=== PATIENT | female | born 1975 | race Caucasian/White ===

== ENCOUNTER 2022-10-20 16:57 | Emergency (ER) | payer BC, SELFPAY ==
--- NOTE | ~2022-10-20 | CT_ITS ---
EXAMINATION: CT abdomen pelvis w con DATE: 10/21/2022 00:27 INDICATION: Abdominal pain, cramps, nausea and diarrhea TECHNIQUE: Computed tomography (CT) of the abdomen and pelvis was performed with 100 CC Omnipaque 350 intravenous contrast. Automated exposure control and iterative reconstruction technique were employe d. Exam dose: 231.02 mGy-cm total exam DLP. COMPARISON: 01/23/2012 CT abdomen pelvis FINDINGS: The lung bases are clear. Normal heart size. No pericardial or pleural effusion. The liver, gallbladder, bile ducts, pancreas, pancreatic duct, spleen and kidneys appear normal. No u rinary tract calculus or hydroureteronephrosis is evident. Normal caliber of the abdominal aorta. No intraperitoneal or retroperitoneal or pelvic mass lesion or adenopathy or ascites is noted. Occasional small bowel air-fluid levels but no small or large bowel dilatation, bowel obstruction, aditi wel wall thickening, pneumatosis or intraperitoneal free air is detected. Small fat-containing umbilical hernia. Multilevel moderate to moderately severe degenerative disc disease of the lumbar spine. No suspicious osteolytic or osteoblastic lesions are noted. IMPRESSION: Occasional small bowel air-fluid levels, possibly due to enteritis; no bowel obstruction or free air Reviewed, dictated and finalized at [facility]. Reviewed, dictated and finalized at [facility]. IMPRESSION: Occasional small bowel air-fluid levels, possibly due to enteritis ; no bowel obstruction or free air
[2022-10-20 18:00] VITALS: BP 114/74; PULSE 79; RESP 16; TEMP 36.8; O2SAT 100
[2022-10-20 23:14] VITALS: BP 114/75; PULSE 69; RESP 16; O2SAT 100
[2022-10-20] MEDS: SODIUM CHLORIDE 0.9% IV 1,000 ML 999 ML IV CONT (23:38)
[2022-10-20] MEDS: ONDANSETRON INJ 4 MG/2 ML VIAL IV PUSH (23:39)
[2022-10-20] MEDS: DICYCLOMINE HCL INJ 20 MG/2 ML VIAL IM (23:39)
[2022-10-20 23:48] LABS: Basophils Absolute Auto 0.1 K/mm3 (0.0-0.1); Basophils Percent Auto 0.9 % (0.2-1.2); Eosinophils Absolute Auto 0.3 K/mm3 (0-0.3); Eosinophils Percent Auto 4.5 % (0-4.4); Hematocrit 39.2 % (37.0-47.0); Hemoglobin 12.5 g/dL (12.0-15.0); Immature Granulocyte Absolute 0.01 K/mm3 (0.00-0.031); Immature Granulocyte Percent A 0.2 % (0-0.5); Lymphocytes Absolute Auto 2.32 K/mm3 (0.9-3.2); Lymphocytes Percent Auto 41.4 % (18.3-44.2); Mean Corpuscular HGB Conc 31.9 g/dl (32-36); Mean Corpuscular Hemoglobin 29.9 pg (26-34); Mean Corpuscular Volume 93.8 fl (80-100); Mean Platelet Volume 10.9 fl (7.4-10.4); Monocytes Absolute Auto 0.4 K/mm3 (0.1-0.6); Monocytes Percent Auto 6.6 % (2.6-8.5); Neutrophils Absolute Auto 2.6 K/mm3 (1.3-6.7); Neutrophils Percent Auto 46.4 % (45.5-73.1); Platelet Count Result 188 k/mm3 (150-375); Red Blood Count 4.18 M/mm3 (4.2-5.4); Red Cell Distribution Width 12.6 % (11.5-14.5); White Blood Count 5.6 K/mm3 (4.5-10.0)
[2022-10-20 23:53] LABS: Appearance Urine Cloudy (Clear); Bacteria Urine 1+ /hpf; Bilirubin Urine Negative (Negative); Blood Urine Negative (Negative); Color Urine Yellow (Yellow); Glucose Urine UA Negative (Negative); Ketones Urine Negative (Negative); Leukocyte Esterase Ur Trace LEU/UL (Negative); Nitrate Urine Negative (Negative); Non Pathogenic Casts 0-2; Protein Urine Negative (Negative); Specific Grav Ur 1.015 (1.001-1.035); Squamous Epithelial Cell Urine Many /hpf (Few); Urobilinogen Urine 0.2 mg/dL (<2.0); pH Urine 5.5 (5.0-9.0)
[2022-10-20 23:59] LABS: Add Urine Microscopic? YES
[2022-10-21 00:01] LABS: Alanine Aminotransferase 18 U/L (6-35); Albumin Level 4.2 g/dL (3.5-5.1); Alkaline Phosphatase 51 U/L (38-126); Anion Gap 6 mmol/L (8-16); Aspartate Amino Transferase 28 U/L (14-36); Bilirubin,Total 0.3 mg/dL (0.2-1.3); Blood Urea Nitrogen 11 mg/dL (7-17); Calcium 9.2 mg/dL (8.4-10.2); Carbon Dioxide 29 mmol/L (22-30); Chloride 103 mmol/L (98-107); Estimated CRCL calculation 63 ml/min; Estimated Glomerular Filt Rate > 60; Glucose 69 mg/dL (65-110); Lactic Acid Reflex 0.5 mmol/L (0.7-2.0); Lipase 37 U/L (23-300); Magnesium 1.8 mg/dL (1.6-2.3); Potassium 3.8 mmol/L (3.4-5.0); Sodium 138 mmol/L (137-145)
--- NOTE | 2022-10-21 02:37 | ED.GENADULT ---
HPI - General Adult General Chief complaint: Abdominal Pain Stated complaint: abdominal cramps, diarrhea since may Time Seen by Provider: 10/20/22 23:09 History of Present Illness HPI narrative: Patient 47-year-old female who presents to the emergency department with chief complaint of abdominal pain diarrhea and nausea. The patient reports this has been ongoing for some time reports that she had no travel reports that she has been taking Imodium without success and reports that she had nausea without vomiting. Patient reports she has not seen her primary care provider reports that she has had multiple watery stools. The patient reports no recent antibiotics no recent travel. Related Data Allergies Allergy/AdvReac Type Severity Reaction Status Date / Time Penicillins Allergy Unknown Unknown Verified 10/20/22 23:21 povidone Allergy Unknown Unknown Verified 10/20/22 23:21 soap Allergy Unknown Unknown Verified 10/20/22 23:21 Review of Systems Review of Systems: A 10 system review of systems was completed on the patient and is negative except for what is stated in the HPI. Nursing and ancillary documentation was reviewed. [facility] Past Medical History Medical History History of depression Surgical History Surgical History History of hysterectomy Family History Family History Father Family history of arthritis Family history of chronic obstructive pulmonary disease Mother Family history of arthritis Other Cerebrovascular accident Diabetes mellitus Family history of allergic disorder Hypertension Social History Social History Smoking status: Never smoker Alcohol intake: current Exam Narrative: GENERAL: Well-appearing, well-nourished, and in no acute distress. HEAD: Normocephalic, atraumatic. EYES: PERRLA and EOMI. ENT: Nares clear, no rhinorrhea or epistaxis. Mucous membranes moist. NECK: Supple. CHEST: Clear to auscultation. No respiratory distress. HEART: Regular rate and rhythm. No murmur heard. Normal peripheral pulses. ABDOMEN: Soft, diffuse mild tenderness, nondistended, normal active bowel sounds. EXTREMITIES: Normal range of motion. No edema. SKIN: Warm, dry, no rash. NEURO: No focal deficits. Alert and oriented x3. PSYCH: Normal mood and affect. Course Vital Signs Vital signs: Vital Signs Temperature 36.8 C 10/20/22 18:00 Pulse Rate 79 10/20/22 18:00 Respiratory Rate 16 10/20/22 18:00 Blood Pressure 114/74 10/20/22 18:00 Pulse Oximetry 100 10/20/22 18:00 Oxygen Delivery Room Air 10/20/22 18:00 Temperature 36.8 C 10/20/22 18:00 Pulse Rate 69 10/20/22 23:14 Respiratory Rate 16 10/20/22 23:14 Blood Pressure 114/75 10/20/22 23:14 Pulse Oximetry 100 10/20/22 23:14 Oxygen Delivery Room Air 10/20/22 23:14 Medical Decision Making [facility] Narrative Medical decision making narrative: Differential diagnosis includes gastroenteritis, diverticulitis, colitis, appendicitis, Studies were obtained on the patient which showed a white blood cell count of 5.6 electrolytes were within normal limits lactic acid is 0.5 urinalysis showed evidence of 6-10 white blood cells in the urine 1+ bacteria and trace leukocyte esterase CT scan showed evidence of enteritis Plan will be to treat the patient with ciprofloxacin that will cover both UTI and also enteritis Vital Signs Vital Signs: Vital Signs Temperature 36.8 C 10/20/22 18:00 Pulse Rate 79 10/20/22 18:00 Respiratory Rate 16 10/20/22 18:00 Blood Pressure 114/74 10/20/22 18:00 Pulse Oximetry 100 10/20/22 18:00 Oxygen Delivery Room Air 10/20/22 18:00 Temperature 36.8 C 10/20/22 18:00 Pulse Rate 69 10/20/22 23:14 R
[2022-10-21 02:59] VITALS: BP 104/76; PULSE 63; RESP 15; TEMP 36.4; O2SAT 98
== END 2022-10-21 03:00 | disposition home or self-care (01) ==
PROVIDERS: Emergency Provider Emergency Medicine; PCP Internal Medicine
DX: K52.9 Noninfective gastroenteritis and colitis, unspecified (principal); N39.0 Urinary tract infection, site not specified; Z90.710 Acquired absence of both cervix and uterus
CPT/HCPCS: 36415; 74177; 80053; 81001; 81025; 83605; 83690; 83735; 85025; 87086; 87088; 96361; 96372; 96374; 99284; J0500; J2405; J7030; Q9967

== ENCOUNTER 2024-02-18 06:23 | Emergency (ER) | payer BC, SELFPAY ==
--- NOTE | ~2024-02-18 | CT_ITS ---
EXAMINATION: CT lumbar spine wo con DATE: 02/18/2024 08:23 INDICATION: Low back pain. Lumbar radiculopathy. TECHNIQUE: Computed tomography (CT) of the lumbar spine was performed without intravenous contrast. A utomated exposure control and iterative reconstruction technique were employed. The dose-length produ ct was 411.05 mGy-cm. COMPARISON: CT abdomen and pelvis 10/21/2022 FINDINGS: There is 7 degrees levocurvature of lumbar spine. Vertebral body heights are normal. There are sclerotic lesions in L3 vertebral body, stable from 10/21/2022, likely benign. There is moderately decreased disc height at L2-L3 and severely decreased disc height from L3-L4 through L5-S1. The foll owing disc levels are specifically discussed: L1-L2: The disc does not extend beyond the endplate margin. There is mild bilateral facet joint osteo arthritis. There is no neural foraminal stenosis. There is no central canal stenosis. L2-L3: The disc is bulging. There is mild bilateral facet joint osteoarthritis. There is mild bilater al neural foraminal stenosis. There is mild central canal stenosis. L3-L4: The disc is bulging. There is moderate right and mild left facet joint osteoarthritis. There i s mild bilateral neural foraminal stenosis. There is mild central canal stenosis. L4-L5: The disc is bulging. There is moderate bilateral facet joint osteoarthritis. There is mild cecil ateral neural foraminal stenosis. There is mild central canal stenosis. L5-S1: The disc is bulging. There is mild bilateral facet joint osteoarthritis. There is mild bilater al neural foraminal stenosis. There is mild central canal stenosis. IMPRESSION: 1. Severe lumbar spondylosis. Reviewed, dictated and finalized at [facility]. [employer]GER
[2024-02-18 06:46] VITALS: BP 93/67; PULSE 72; RESP 18; TEMP 37; O2SAT 98
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
[2024-02-18] MEDS: HYDROmorphone HCL INJ (*CRX) 1 MG/ML SYR IM (08:12)
[2024-02-18 08:15] VITALS: BP 123/92; PULSE 84; RESP 18; O2SAT 99
[2024-02-18 09:41] VITALS: BP 115/79; PULSE 62; RESP 19; O2SAT 100
== END 2024-02-18 09:42 | disposition home or self-care (01) ==
PROVIDERS: Emergency Provider Emergency Medicine; PCP Internal Medicine
DX: M54.16 Radiculopathy, lumbar region (principal); F32.A Depression, unspecified
CPT/HCPCS: 72131; 96372; 99284; J1171

== ENCOUNTER 2024-09-13 14:43 | Emergency (ER) | payer BC, SELFPAY ==
[2024-09-13 14:52] VITALS: BP 126/68; PULSE 77; RESP 16; TEMP 36.7; O2SAT 95
--- NOTE | 2024-09-13 15:26 | ED.EAR ---
HPI - Ear Problem General Chief complaint: Ear Stated complaint: Ear Irritation, Hand Pain Time Seen by Provider: 09/13/24 14:45 Source: patient Mode of arrival: ambulatory Limitations: no limitations History of Present Illness HPI Narrative: Lexus is a 49-year-old female patient presenting to the clinic today with complaints of bilateral hand pain x2 months and bilateral ear discomfort/decreased hearing. She reports the bilateral ear discomfort has been over the past few days however the bilateral hand pain is been going on for 2 months. States the pain is over her bilateral 1st metacarpals. No known injury. Works at the local [employer]. States when she wears her compression wrap and applies Biofreeze the pain improves. Related Data Home Medications ?Medication ?Instructions ?Recorded ?Confirmed ?Last Taken ?Type alprazolam 1 mg tablet mg 09/13/24 Unknown History bupropion HCl 150 mg tablet,12 hr mg PO 09/13/24 Unknown History sustained-release buspirone 10 mg tablet mg 09/13/24 Unknown History estradiol 2 mg tablet mg 09/13/24 Unknown History Allergies Allergy/AdvReac Type Severity Reaction Status Date / Time Penicillins Allergy Unknown Unknown Verified 09/13/24 14:51 povidone Allergy Unknown Unknown Verified 09/13/24 14:51 soap Allergy Unknown Unknown Verified 09/13/24 14:51 iodine Allergy Unknown Verified 09/13/24 14:51 povidone-iodine (From Allergy Blister Verified 09/13/24 14:51 Betadine) Review of Systems Review of Systems: Pertinent positives per HPI. Patient denies any fever, chills, rash, headache, visual changes, dizziness, cough, shortness of breath, chest pain, palpitations, nausea, vomiting, diarrhea, constipation, abdominal pain, or any urinary issues. [facility] Past Medical History Medical History History of depression Surgical History Surgical History History of hysterectomy Family History Family History Father Family history of arthritis Family history of chronic obstructive pulmonary disease Mother Family history of arthritis Other Cerebrovascular accident Diabetes mellitus Family history of allergic disorder Hypertension Social History Social History Smoking status: Never smoker Alcohol intake: current Comments At the time of my signature, I reviewed and agree with the nursing past medical, surgical, social, and family history. There is no relevant family history pertinent to the patient complaint. Exam Narrative: General: Well-developed, well nourished, in no apparent distress Head: Normocephalic, atraumatic Eyes: Pupils equally round and reactive to light bilaterally, EOM intact, sclera and conjunctive clear, no discharge, lids normal Ears: Cerumen impaction bilaterally, ear irrigation was performed successfully, TMs intact and clear, ear canals excoriated, no drainage, grossly hearing normal. Nose: Nares patent, no discharge, no inflammation, no sinus tenderness. Mouth: Oral pharynx without lesions or masses, good dentition, MMM. Neck: Supple, trachea midline, no enlargement of anterior or posterior cervical nodes, no thyroid masses or goiter palpable. Cardio: Regular rate and rhythm, s1 and s2 normal, no murmur appreciated. Resp: Clear to auscultation bilaterally, no rhonchi, rales, wheezing or rubs Musculoskeletal: No deformity, tender to palpation over the bilateral 1st metacarpal, negative Tinel's, negative Phalen's, negative Matthew, grossly normal range of motion, muscle strength strong and equal, peripheral pulse strong, no edema, no cyanosis, normal gait and station Course Course Emergency Course: Portions of this record may have been created with voice recognition software. Level of Care: Express Care Visit Vital Signs Vital signs: Vital Signs Temperature 36.7 C 09/13/24 14:52 Pulse Rate 77 09/13/24 14:52 Respiratory Rate 16 09/13/24 14:52 Blood Pressure 126/68 09/13/24 14:52 Pulse Oximetry 95 09/13/24 14:52 Oxygen Delivery Room Air 09/13/24 14:52 Temperature 36.7 C 09/13/24 14:52 Pulse Rate 77 09/13/24 14:52 Respiratory Rate 16 09/13/24 14:52 Blood Pressure 126/68 09/13/24 14:52 Pulse Oximetry 95 09/13/24 14:52 Oxygen Delivery Room Air 09/13/24 14:52 Vital signs reviewed Medical Decision Making MDM Narrative Medical decision making narrative: At the time of visit patient is resting comfortably on the exam table. Patient appears to be nontoxic. Procedures: Ear lavage procedure was performed to bilateral ears successfully. Patient tolerated well Plan: I suspect patient has arthralgia of bilateral hands. Patient has excoriation to bilateral ear canals likely due to impacted wax/ear irrigation. We will place on a 5 day course of Cortisporin. Supportive measures were discussed with the patient and they voiced understanding discharge instructions and agrees to treatment plan. Return precautions reviewed Differential Diagnosis Differential Diagnosis: Otitis media, otitis externa, eustachian tube dysfunction, cerumen impaction, upper respiratory infection, serous otitis, Meniere's disease, conductive hearing loss, sensorineural hearing loss, carpal tunnel syndrome, arthritis, tendinitis, de Quervain syndrome Vital Signs Vital Signs: Vital Signs Temperature 36.7 C 09/13/24 14:52 Pulse Rate 77 09/13/24 14:52 Respiratory Rate 16 09/13/24 14:52 Blood Pressure 126/68 09/13/24 14:52 Pulse Oximetry 95 09/13/24 14:52 Oxygen Delivery Room Air 09/13/24 14:52 Temperature 36.7 C 09/13/24 14:52 Pulse Rate 77 09/13/24 14:52 Respiratory Rate 16 09/13/24 14:52 Blood Pressure 126/68 09/13/24 14:52 Pulse Oximetry 95 09/13/24 14:52 Oxygen Delivery Room Air 09/13/24 14:52 Discharge Plan Discharge Clinical Impression: Arthralgia of both hands, Bilateral impacted cerumen Otitis externa Qualifiers: Otitis externa type: diffuse Chronicity: acute Laterality: bilateral Qualified Code(s): H60.313 - Diffuse otitis externa, bilateral Patient Disposition: Home Condition: Stable Instructions: Antibiotic Form, Earache (ED), Arthralgia (ED) Additional Instructions: Ear irrigation was performed successfully in the clinic today. May still Cortisporin ear drops in each ear 3 times daily x5 days I suspect patient likely has hand arthralgia. Rest, ice, elevate, and compression sleeves as directed Tylenol/motrin for pain as discussed. May apply Aspercreme, blue emu, or Biofreeze to the affected area to help alleviate pain Follow up with your PCP if symptoms persist more than 1 week. Patient Language: Kiswahili Prescriptions: New [id number] 3.5-10,000-1 mg/mL-unit/mL-% drops,suspension 4 drp EACH EAR Q8H 5 Days Qty: 10 0RF No Action bupropion HCl 150 mg tablet sustained-release 12 hr PO alprazolam 1 mg tablet buspirone 10 mg tablet estradiol 2 mg tablet Follow-up/Referrals: Danny,Brian Forrester MD [Primary Care Provider] - Time of Disposition: 16:04 Quality NIHSS Nursing Documentation ED NIHSS nursing documentation: reviewed/agree
[2024-09-13] MEDS: CARBAMIDE PEROXIDE 6.5% OT SOLN 15 ML BTL 5 DROP EACH EAR (15:32)
== END 2024-09-13 16:12 | disposition home or self-care (01) ==
PROVIDERS: Emergency Provider Nurse Practitioner Family; PCP Internal Medicine
DX: H61.23 Impacted cerumen, bilateral (principal); M25.542 Pain in joints of left hand; M25.541 Pain in joints of right hand; H60.313 Diffuse otitis externa, bilateral; Z79.899 Other long term (current) drug therapy
CPT/HCPCS: 69210; 99213; A9270; G0463

== ENCOUNTER 2024-12-05 16:56 | Emergency (ER) | payer BC, SELFPAY ==
--- OUTSIDE RECORDS SUMMARY | 2024-12-04 09:30 | XMS_ITS ---
Author Organization [facility] Address [address] [place] [address] [place] [address] Care Team Providers Care Industrial Arts Teacher Name Role Phone HECTOR XIAO MD Primary Care Provider Tl Zarate Unavailable [phone] VIVIANE MEADE CHARLES Unavailable Unavailable ALLERGIES Allergen (clinical drug ingredient) Drug/Non Drug Allergy documented on EMR Reaction Allergy Type Onset Date Status povidone-iodine Betadine rash Drug Allergy A ctive amoxicillin Amoxicillin anaphylaxis Drug Allergy A ctive Iodinated contrast media (substance) Iodinated Contrast Media rash Drug Allergy Active Penicillin hives Drug Allergy Active REASON FOR VISIT New Patient Visit, Left > Right Neck Pain, Left = Right Upper Extremity Pain, Right = Left Low Back Pain, Right = Left Lower Extremity Pain MEDICATIONS Medication SIG (Take, Route, Frequency, Duration) Notes Start Date End Date Status Vitamin C 1000 MG 1 tablet Orally Once a day for 30 day(s) Active Calcium 1200 3306-8201 MG-UNIT 1 tablet Orally Once a day for 30 day(s) Active busPIRone HCl 10 MG TAKE 1 TABLET BY RODNEY TH TWICE A DAY FOR 30 DAYS Oral for 30 Active Tylenol 325 MG 1 tablet as needed O rally every 6 hrs Active ZyrTEC Allergy 10 MG 1 tablet Orally Onc e a day for 30 day(s) Active Estradiol 2 MG TAKE 1 TABLET BY RODNEY TH DAILY Oral for 30 Active buPROPion HCl ER (SR) 150 MG TAKE 1 TABLET BY MOUTH TWICE A DAY Oral for 30 Active ALPRAZolam 1 MG TAKE 1 TABLET BY RODNEY TH TWICE A DAY NEEDED Oral for 30 Active Aleve 220 MG 1 tablet with food o r milk as needed Orally every 12 hrs Active Ibuprofen 200 MG 1 tablet with food o r milk as needed Orally Three times a day Active SOCIAL HISTORY Tobacco Use: Social History Observation Description Date Details (start date - stop date) Current Smoker NA - NA Sex Assigned At : Social History Observation Description Sex Assigned At Unknown Tobacco Use/Smoking Question Answer Notes Are you a current smoker How often do you smoke cigarettes? some days, bu t not every day Are you interested in quitting? Not ready to lily t Tobacco use other than smoking: Question Answer Notes Are you an other tobacco user? 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 The patient is single with two children. The patient vapes. She has a history of alcohol abuse. She has been sober for 9 years. She denies llicit drug abuse. PROBLEMS Problem Type ICD Code Onset Dates Problem Status W/U Status Risk SNOMED Code Notes Problem Radiculopathy, cervical region (M54.12) Active confirmed Cervical radiculopathy (91414255) Problem Lumbar radiculopathy (M54.16) Active confirmed Lumbar radiculopathy (174449712) VITAL SIGNS Blood pressure systolic 128 mm Hg 12/05/19 25 Blood pressure diastolic 85 mm Hg 025 Heart Rate 74 /min 12/04/2024 Respiratory Rate 16 /min 12/04/2024 Height 5 ft 5 in in 12/04/2024 Weight 146 lbs 12/04/2024 BMI 24.29 kg/m2 12/04/2024 Encounters Encounter Location Date Provider Diagnosis [facility] [address] [place] [id number] 12/04/2024 Tl Wooten Radiculopathy, cervical region M54.12 and Lumbar radiculopathy M54.16 ASSESSMENTS Encounter Date Diagnosis Assessment Notes Treatment Notes Treatment Clinical Notes Section Notes 12/04/2024 Radiculopathy, cervical region (ICD-10 - M54.12) 12/04/2024 Lumbar radiculopathy (ICD-10 - M54.16) 12/04/2024 Other The above note was dictated by Dr. Wooten using voice recognition software and therefore inadvertent errors may have occurred. As a result, this note may not represent a completely accurate interpretation of the intended dictation provided. Thank you for your kind referral and for involving me in the care of this patient. PLAN OF TREATMENT Treatment Notes Assessment Notes Other The above note was dictated by Dr. Wooten using voice recognition software and therefore inadvertent errors may have occurred. As a result, this note may not represent a completely accurate interpretation of the intended dictation provided. Thank you for your kind referral and for involving me in the care of this patient. Pending Test Test Name Order Date MRI : Cervical Spine without Contrast ([id number]) 12/04/2024 MRI : Lumbar Spine without contrast ([id number]) 12/04/2024 Next Appt Details Provider Name:Tl Cody June hebert, 12/19/2024 09:30:00 AM, [address] [place], [address], Progress Notes * Examination Category Sub-Category Detail Notes Category Not es Examination/ Pre-Anesthesia Assessment General: The patient is alert and oriented X 3 in moderate distress secondary to pain HEENT: Normocephalic, atrau matic. PERRL. The oropharynx is clear Neck: There is full range of motion of the cervical spine Heart: Regular rate and rhy thm Chest: Clear to auscultatio n bilaterally Abdomen: Soft and benign with normal bowel sounds throughout Musculoskeletal and Extremities: There i s tenderness to palpation over the bilateral L2-3 through L5-S1 facet joints. Extension and lateral rotation of the lumbar spine reproduces the patient's typical axial low back pain. Dexter's, [place]'s and [place]'s are positive bilaterally. There is tenderness to palpation over the bilateral sacroiliac joints and greater trochanters. There is tenderness to palpation over the bilateral lumbar paraspinal muscles and palpable myofascial trigger points throughout. There is weakness and atrophy of the bilateral lumbar paraspinal muscles Neurological: There is positive st raight leg raising bilaterally Skin: Clean, dry and intac t Psychiatric: Mood and affect are normal History and Physical Notes * HPI (History of Present Illness) Category Sub-Category Detail Notes Category Not es Pain Management Assessment and Follow-up: Follow -up Plan documented:: Yes
--- OUTSIDE RECORDS SUMMARY | 2024-12-05 06:53 | XMS_ITS ---
Author Organization [facility] Address [address] [facility] [place] te [place] [address] Care Team Providers Care Hardware Sales Assistant Name Role Phone HECTOR XIAO MD Primary Care Provider Tl Zarate Unavailable [phone] VIVIANE MEADE CHARLES Unavailable Unavailable REASON FOR VISIT Consult Encounters Encounter Location Date Provider Diagnosis [facility] [address] [facility] [place] [address] 12/05/2024 Tl Wooten PLAN OF TREATMENT Next Appt Details Provider Name:Tl hebert, 12/19/2024 09:30:00 AM, [address] [facility] [place], [address],
--- OUTSIDE RECORDS SUMMARY | 2024-12-05 16:58 | XMS_ITS | Patient Health Record ---
Author Organization [facility] Address [address] [place] [address] [place] [address] Care Team Providers Care Surgical Resident Name Role Phone HECTOR XIAO MD Primary Care Provider Tl Zarate Unavailable [phone] VIVIANE MEADE CHARLES Unavailable Unavailable ALLERGIES Allergen (clinical drug ingredient) Drug/Non Drug Allergy documented on EMR Reaction Allergy Type Onset Date Status povidone-iodine Betadine rash Drug Allergy A ctive amoxicillin Amoxicillin anaphylaxis Drug Allergy A ctive Iodinated contrast media (substance) Iodinated Contrast Media rash Drug Allergy Active Penicillin hives Drug Allergy Active REASON FOR REFERRAL No Information MEDICATIONS Medication SIG (Take, Route, Frequency, Duration) Notes Start Date End Date Status Vitamin C 1000 MG 1 tablet Orally Once a day for 30 day(s) Active Calcium 1200 0070-1452 MG-UNIT 1 tablet Orally Once a day for 30 day(s) Active busPIRone HCl 10 MG TAKE 1 TABLET BY RODNEY TH TWICE A DAY FOR 30 DAYS Oral for 30 Active Estradiol 2 MG TAKE 1 TABLET [...] needed Orally Three times a day Active Tylenol 325 MG 1 tablet as needed O rally every 6 hrs Active ZyrTEC Allergy 10 MG 1 tablet Orally Onc e a day for 30 day(s) Active SOCIAL HISTORY Tobacco Use: Social History [...] user? 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 The patient is single with two children. The patient vapes. She has a history of alcohol abuse. She has been sober for 9 years. She denies llicit drug abuse. PROBLEMS Problem Type ICD Code Onset Dates Problem Status W/U Status Risk SNOMED Code Notes Problem Radiculopathy, cervical region (M54.12) Active confirmed Cervical radiculopathy (00409255) Problem Lumbar radiculopathy (M54.16) Active confirmed Lumbar radiculopathy (481003585) VITAL SIGNS Heart Rate 74 /min 12/04/2024 Respiratory Rate 16 /min 12/04/2024 Blood pressure diastolic 85 mm Hg 12/04/2024 Height 5 ft 5 in in 12/04/2024 Blood pressure systolic 128 mm Hg 12/04/2024 Weight 146 lbs 12/04/2024 BMI 24.29 kg/m2 12/04/2024 Encounters Encounter Location Date Provider Diagnosis [facility] [address] [place] [address] 12/04/2024 Tl Wooten Radiculopathy, cervical region M54.12 and Lumbar radiculopathy M54.16 [facility] [address] [place] [address] 12/05/2024 Tl Wooten ASSESSMENTS Encounter Date Diagnosis Assessment Notes Treatment [...] care of this patient. PLAN OF TREATMENT Pending Test Test Name Order Date MRI : Cervical Spine without Contrast (7 8831) 12/04/2024 MRI : Lumbar Spine without contrast (650 05) 12/04/2024 Next Appt Details Provider Name:Tl hebert, 12/19/2024 09:30:00 AM, [address] [place], [address], Insurance Providers Payer Name Payer Address Payer Phone Subscriber Number Group Number Insured Name Patient Relationship to Insured Coverage Start Date Coverage End Date [facility] [address] [place] [address] [id number] DIDI RITTER Self - patient is the insured MEDICAL (GENERAL) HISTORY Medical History History ICD Code Depression IBS Anxiety Insomnia Surgical History Surgery Date(Month/Year) C4-5, C5-6 and C6-7 Disc Arthroplasty--Magdalena Avalos 12/29/2021
--- OUTSIDE RECORDS SUMMARY | 2024-12-05 16:58 | XMS_ITS | Encounter Summary ---
Author Organization [facility] Address [address] [place] [address] Phone Care Team Providers Care Rest Room Attendant Name Role Phone Brian Delgado MD Primary Care Provider Encounter Details Date Type Department Care Team (Late st Contact Info) Description 12/04/2024 Telephone [facility] [address] [place] [phone] Devora Austin Social History Tobacco Use Types Packs/Day Years Used Date Smoking Tobacco: Every Day Vaping Smokeless Tobacco: Never Alcohol Use Standard Drinks/Week Comments Never 0 (1 standard drink = 0.6 oz pur e alcohol) AUDIT-C Answer Date Recorded Q1: How often do you have a drink containing alc ohol? 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 LM for patient to give us a call to get her appointments scheduled documented in this encounter Plan of Treatment Not on file documented as of this encounter Visit Diagnoses Not on filedocumented in this encounter Care Teams Rest Room Attendant Relationship Specialty Start Date End Date Brian Delgado MD [address] [facility] [address] [place] [phone] PCP - General Internal Medicine 11/18/19 documented as of this encounter
--- OUTSIDE RECORDS SUMMARY | 2024-12-05 16:58 | XMS_ITS | Patient Health Record ---
Author Organization [facility] Address [address] [place] [address] Care Team Providers Care Electron Microscopist Name Role Phone Ana Laura Durant Primary Care Provider [phone] Jessica Meyer Unavailable [phone] Bernarda Izquierdo Unavailable [phone] Allergies Allergen (clinical drug ingredient) Drug/Non Drug Allergy documented on EMR Reaction Allergy Type Onset Date Status Cat dander cats (uncoded) Unknown Allergy Acti ve Dog dander dogs (uncoded) Unknown Allergy Acti ve grass (uncoded) Unknown Allergy Acti ve povidone-iodine Betadine Unknown Drug Allergy A ctive Dust Mites Unknown Allergy Active Penicillin Unknown Drug Allergy Active Reason For Referral No Information Medications Medication SIG (Take, Route, Frequency, Duration) Notes Start Date End Date Status Xyzal Allergy 24HR 5 MG 2 tablets Orally Once a day Not-Taking Cetirizine HCl 10 MG 1 tablet Orally Onc e a day Active Tylenol 325 MG 1 tablet as needed Orally As needed Active Aleve 220 MG 1 tablet with food or milk as needed Orally daily As needed Active busPIRone HCl 10 MG 1 tablet Orally Twic e a day; Duration: 30 days Active Unisom Active Ibuprofen 200 MG 1 tablet with food o r milk as needed Orally Three times a day Active ALPRAZolam 1 MG 1 tablet Orally Twice a day as needed; Duration: 30 days As needed 10/13/2024 Active buPROPion HCl ER (SR) 150 MG TAKE 1 TABLET BY MOUTH TWICE A DAY; Duration: 90 Active Vitamin C 1000 MG 1 tablet Orally Once a day Active Estradiol 2 MG 1 tablet Orally Once a day Active Calcium 1200+D3 Acti ve Social History Tobacco Use: Social History Observation Description Date Details (start date - stop date) Unknown Tobacco Control (Standard) Question Answer Notes Additional Findings: Tobacco user e-ciga rette,Light cigarette smoker (1-9 cigs/day) Additional Findings: Tobacco non-user Ne nick chewed tobacco,Does not use moist powdered tobacco,Never used moist powdered tobacco How long has it been since y ou last smoked? 1-5 years Tobacco use: Uses tobacco in other forms Problems Problem Type SNOMED Code ICD Code Onset Dates Problem Status W/U Status Risk Notes Problem Depression (905300821) Depression (F32.9) Active confirmed Problem Anxiety (10974158) Anxiety (F41.9) Active confirmed Problem Panic disorder (078530858) Panic disorder (F41.0) Active confirmed Problem Mixed anxiety and depressive disorder (109725034) Anxiety associated with depression (F41.8) Active confirmed Problem Insomnia due to mental disorder (14384168) Insomnia due to mental disorder (F51.05) Active confirmed Problem Benzodiazepine dependence (311578108) Benzodiazepine dependence (F13.20) Active confirmed 20 years, treatment goal includes reduction of alprazolam Problem Recurrent major depression (29673171) MDD (major depressive disorder), recurrent episode (F33.9) Active confirmed Problem Adjustment disorder (87959563) Trauma and stressor-related disorder (F43.9) Active confirmed Vital Signs Weight 140 lbs 10/13/2024 Encounters Encounter Location Date Provider Diagnosis [address] [place] [address] 12/06/2023 Jessica Meyer Depression F32.9 and Anxiety F41.9 [facility] [address] [place] [phone] 01/10/2024 Bernarda Izquierdo MDD (major depressiv e disorder), recurrent episode F33.9 ; Trauma and stressor-related disorder F43.9 ; Panic disorder F41.0 ; Anxiety associated with depression F41.8 ; Alcohol use disorder in remission F10.91 and Benzodiazepine dependence F13.20 [facility] [address] [address] 02/07/2024 Kyria Izquierdo MDD (major depressiv e disorder), recurrent episode F33.9 ; Trauma and stressor-related disorder F43.9 ; Panic disorder F41.0 ; Anxiety associated with depression F41.8 ; Alcohol use disorder in remission F10.91 and Benzodiazepine dependence F13.20 [facility] [address] [place] [address] 02/28/2024 Kyria Izquierdo MDD (major depressiv e disorder), recurrent episode F33.9 ; Trauma and stressor-related disorder F43.9 ; Panic disorder F41.0 ; Anxiety associated with depression F41.8 ; Alcohol use disorder in remission F10.91 and Benzodiazepine dependence F13.[address] [address] 03/20/2024 Lawsonria Izquierdo MDD (major depressiv e disorder), recurrent episode F33.9 ; Trauma and stressor-related disorder F43.9 ; Panic disorder F41.0 ; Anxiety associated with depression F41.8 ; Alcohol use disorder in remission F10.91 ; Benzodiazepine dependence F13.20 and Insomnia due to mental disorder F51.[address] [address] 04/08/2024 Lawsonria Izquierdo MDD (major depressiv e disorder), recurrent episode F33.9 ; Trauma and stressor-related disorder F43.9 ; Panic disorder F41.0 ; Anxiety associated with depression F41.8 ; Alcohol use disorder in remission F10.91 ; Benzodiazepine dependence F13.20 and Insomnia due to mental disorder F51.[address] [address] 06/06/2024 Kyria Izquierdo MDD (major depressiv e disorder), recurrent episode F33.9 ; Trauma and stressor-related disorder F43.9 ; Panic disorder F41.0 ; Anxiety associated with depression F41.8 ; Alcohol use disorder in remission F10.91 ; Benzodiazepine dependence F13.20 and Insomnia due to mental disorder F51.05 [facility] [address] [place] [address] 07/29/2024 Armandoa Timbo MDD (major depressiv e disorder), recurrent episode F33.9 ; Trauma and stressor-related disorder F43.9 ; Panic disorder F41.0 ; Anxiety associated with depression F41.8 ; Alcohol use disorder in remission F10.91 ; Benzodiazepine dependence F13.20 and Insomnia due to mental disorder F51.05 [facility] [address] [address] 10/13/2024 Ana Laura Durant MDD (major depressive disorder), recurrent episode F33.9 ; Trauma and stressor-related disorder F43.9 ; Panic disorder F41.0 ; Anxiety associated with depression F41.8 ; Alcohol use disorder in remission F10.91 ; Benzodiazepine dependence F13.20 and Insomnia due to mental disorder F51.[address] [address] 01/10/2024 Bernarda Izquierdo [facility] [address] [address] 01/10/2024 Lawsonridebora Izquierdo [address] [address] 01/21/2024 Armandoa Izquierdo [facility] [address] [address] 01/25/2024 Bernarda Izquierdo [facility] [address] [address] 02/05/2024 Kyria Timbo [address] [place] [address] 02/19/2024 Kyria Izquierdo MDD (major depressiv e disorder), recurrent episode F33.[address] [place] [address] 03/10/2024 Kyria Izquierdo MDD (major depressiv e disorder), recurrent episode F33.[address] [address] 03/12/2024 Kyria Izquierdo MDD (major depressiv e disorder), recurrent episode F33.[address] [place] [address] 05/09/2024 Bernarda Scottn MDD (major depressiv e disorder), recurrent episode F33.9 [facility] [address] [place] [address] 06/03/2024 Bernarda Scottn MDD (major depressiv e disorder), recurrent episode F33.[address] [place] [address] 10/03/2024 Ana Lauraslime Durant MDD (major depressive disorder), recurrent episode F33.[address] [place] [address] 10/13/2024 Ana Laurawilfrido Durant [facility] [address] [place] [address] 11/05/2024 Ana Laura Durant Assessments Encounter Date Diagnosis (ICD Code) Assessment Notes Treatment Notes Treatment Clinical Notes Section Notes 12/06/2023 Depression (ICD-10 - F32.9) PHQ-9 score is 14 today, was 13 at last visit; pt agrees to continue to talk with therapist. Pt denies SI/HI at this time. Will stop Pristiq due to side effects. Will start Vraylar to help depression as pt has failed numerous anti-depressants. Risks/benefits/side effects of medication discussed with pt. Will consider adding Lamotrigine in the future if moods do not improve. 01/10/2024 MDD (major depressive disorder), recurrent episode (ICD-10 - F33.9) 02/19/2024 MDD (major depressive disorder), recurrent episode (ICD-10 - F33.9) 02/07/2024 MDD (major depressive disorder), recurrent episode (ICD-10 - F33.9) History: 20 year Xanax use. Hx of extensive trauma starting in childhood. Failed mx antidepressants. with increase in side effects. Works at [employer], 2 grown children. Previous SA by OD on pain pills. Currently, seeing therapist 2x a week at [facility]. In [employer] the past 8 years, has a sponsor. Last drink June 2015. Today's visit: Patient is a 48-year-old female who presents for a psychiatric follow-up over phone and is located in [place]. Previously seen on 01/10/2024 as a transfer, and during this appt was stopped on Vraylar, continued on Alprazolam 1 mg BID as need, Buspar 10 mg BID and Wellbutrin SR 150 mg BID, with GeneSight testing ordered. Previous PHQ-9 score of 12, today is 11. Reviewed GeneSight testing with patient, and through more review of her hx, she is agreeable to trialing amitriptyline as adjunct for depression/insomnia and may be helpful for her pain; she adamantly denies any cardiac hx in herself or family. Will continue other medications as currently prescribed. Encourage continued engagement in AA and sober support system. No acute safety concerns the time of this appt, he is agreeable to treatment plan and was provided an opportunity to ask questions. May self-administer medications or be administered own oral medications per [place] protocols. Provided informed consent with understanding of side effects, adverse effects, risks and benefits as well as alternative treatments as previously discussed and with the above recommended medications & other aspects of the treatment program. Agrees to return sooner if symptoms worsen or suicidal or homicidal ideations occur. 02/07/2024 Trauma and stressor-related disorder (ICD-10 - F43.9) 02/28/2024 MDD (major depressive disorder), recurrent episode (ICD-10 - F33.9) History: 20 year Xanax use. Hx of extensive trauma starting in childhood. Failed mx antidepressants. with increase in side effects. Works at [employer]. Previous SA by OD on pain pills. Currently, seeing therapist 2x a week at [facility]. In [employer] the past 8 years, has a sponsor. Last drink June 2015. Today's visit: Patient is a 48-year-old female who presents for a psychiatric follow-up over phone and is located in [place]. Previously seen on 02/07/2024 and during this appt [facility] testing was reviewed, was started on Amitriptyline, and continued on Wellbutrin SR BID, Buspar 10 mg BID and Xanax 1 mg BID PRN. Previous PHQ-9 score of 11, today is 14. Called crisis on 02/18 regarding AH in the context of worsening depression and passive SI and after initiation of short-term steroids and was subsequently started on fluoxetine [address] Camejo and stopped on amitriptyline. Steroids are known to potentially cause psychotic symptoms including hallucinations which likely contributed to her hearing voices in her setting of worsening depression. Has been taking Prozac 20mg for 1 week now with noticeable improvement in mood and no further hallucinations. Will continue current dose and follow up in 5 weeks, around the 6-week ronald, to assess for efficacy and consider dose increase if needed. Encourage continued engagement in AA and sober support system. No acute safety concerns the time of this appt, she is agreeable to treatment plan and was provided an opportunity to ask questions. May self-administer medications or be administered own oral medications per [place] protocols. Provided informed consent with understanding of side effects, adverse effects, risks and benefits as well as alternative treatments as previously discussed and with the above recommended medications & other aspects of the treatment program. Agrees to return sooner if symptoms worsen or suicidal or homicidal ideations occur. 03/10/2024 MDD (major depressive disorder), recurrent episode (ICD-10 - F33.9) 03/12/2024 MDD (major depressive disorder), recurrent episode (ICD-10 - F33.9) 03/20/2024 MDD (major depressive disorder), recurrent episode (ICD-10 - F33.9) Last alprazolam refill on 03/11 for 30 days, refill sent for 04/10/24 [facility] Response got Denied on 2024-06-03 14:40:38 for 'ALPRAZolam 1 MG Tablet'Pharmacy Notes: Prescription not found. Contact Pharmacy by other means 03/20/2024 Trauma and stressor-related disorder (ICD-10 - F43.9) 04/08/2024 MDD (major depressive disorder), recurrent episode (ICD-10 - F33.9) Last alprazolam refill sent for 04/10/24 05/09/2024 MDD (major depressive disorder), recurrent episode (ICD-10 - F33.9) 06/03/2024 MDD (major depressive disorder), recurrent episode (ICD-10 - F33.9) 06/06/2024 MDD (major depressive disorder), recurrent episode (ICD-10 - F33.9) 07/29/2024 MDD (major depressive disorder), recurrent episode (ICD-10 - F33.9) 10/03/2024 MDD (major depressive disorder), recurrent episode (ICD-10 - F33.9) 10/13/2024 MDD (major depressive disorder), recurrent episode (ICD-10 - F33.9) 10/13/2024 Trauma and stressor-related disorder (ICD-10 - F43.9) 07/29/2024 Trauma and stressor-related disorder (ICD-10 - F43.9) 06/06/2024 Trauma and stressor-related disorder (ICD-10 - F43.9) 04/08/2024 Trauma and stressor-related disorder (ICD-10 - F43.9) 03/20/2024 Panic disorder (ICD-10 - F41.0) 02/28/2024 Trauma and stressor-related disorder (ICD-10 - F43.9) 01/10/2024 Trauma and stressor-related disorder (ICD-10 - F43.9) 02/07/2024 Panic disorder (ICD-10 - F41.0) 12/06/2023 Anxiety (ICD-10 - F41.9) Pt reports that she has been taking Xanax up to three times per day. Encouraged pt to take med 2 times per day PRN. Lengthy discussion with pt about half-way use of benzos. Pt has been on med half-way per prior psych provider Pt reports that she is tolerating meds well. Ilpmp reviewed. DD: PTSD, Mood DIsorder, Personality DIsorder 01/10/2024 Panic disorder (ICD-10 - F41.0) 02/07/2024 Anxiety associated with depression (ICD-10 - F41.8) 02/28/2024 Panic disorder (ICD-10 - F41.0) 03/20/2024 Anxiety associated with depression (ICD-10 - F41.8) 04/08/2024 Panic disorder (ICD-10 - F41.0) 06/06/2024 Panic disorder (ICD-10 - F41.0) 07/29/2024 Panic disorder (ICD-10 - F41.0) 10/13/2024 Panic disorder (ICD-10 - F41.0) 10/13/2024 Anxiety associated with depression (ICD-10 - F41.8) 07/29/2024 Anxiety associated with depression (ICD-10 - F41.8) 06/06/2024 Anxiety associated with depression (ICD-10 - F41.8) 04/08/2024 Anxiety associated with depression (ICD-10 - F41.8) 03/20/2024 Alcohol use disorder in remission (ICD-10 - F10.91) Sober since July 03 2015 02/28/2024 Anxiety associated with depression (ICD-10 - F41.8) 02/07/2024 Alcohol use disorder in remission (ICD-10 - F10.91) Sober since July 03 2015 01/10/2024 Anxiety associated with depression (ICD-10 - F41.8) 02/07/2024 Benzodiazepine dependence (ICD-10 - F13.20) 20 years, treatment goal includes reduction of alprazolam 01/10/2024 Alcohol use disorder in remission (ICD-10 - F10.91) Sober since July 03 2015 02/28/2024 Alcohol use disorder in remission (ICD-10 - F10.91) Sober since July 03 2015 04/08/2024 Alcohol use disorder in remission (ICD-10 - F10.91) Sober since July 03 2015 03/20/2024 Benzodiazepine dependence (ICD-10 - F13.20) 20 years, treatment goal includes reduction of alprazolam 06/06/2024 Alcohol use disorder in remission (ICD-10 - F10.91) Sober since July 03 2015 07/29/2024 Alcohol use disorder in remission (ICD-10 - F10.91) Sober since July 03 2015 10/13/2024 Alcohol use disorder in remission (ICD-10 - F10.91) Sober since July 03 2015 10/13/2024 Benzodiazepine dependence (ICD-10 - F13.20) 20 years, treatment goal includes reduction of alprazolam 06/06/2024 Benzodiazepine dependence (ICD-10 - F13.20) 20 years, treatment goal includes reduction of alprazolam 07/29/2024 Benzodiazepine dependence (ICD-10 - F13.20) 20 years, treatment goal includes reduction of alprazolam 04/08/2024 Benzodiazepine dependence (ICD-10 - F13.20) 20 years, treatment goal includes reduction of alprazolam 02/28/2024 Benzodiazepine dependence (ICD-10 - F13.20) 20 years, treatment goal includes reduction of alprazolam 03/20/2024 Insomnia due to mental disorder (ICD-10 - F51.05) History: 20 year Xanax use. Hx of extensive trauma starting in childhood. Failed mx antidepressants. with increase in side effects. Works at [employer], 2 grown children. Previous SA by OD on pain pills. Currently, seeing therapist 2x a week at [facility]. In [employer] the past 8 years, has a sponsor. Last drink June 2015. Today's visit: Patient is a 48-year-old female who presents for a psychiatric follow-up over phone and is located in [place]. Previously seen on 02/28/2024 and during this appt was continued on her current psychiatric medications. Previous PHQ-9 score of 14, today is 14. Pt reports some noticeable improvement in mood since starting fluoxetine however continues to report high anxiety. She would like to continue taking as prescribed, notes some initial nausea that has gone away and denying any other side effects. Reports anxiety continues to be high. She reports poor sleep and is agreeable to trialing trazodone as needed. Reviewed her benzodiazepine, and she's been taking as BID since at least September. 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 Recommend follow up in 4 weeks, may consider increase fluoxetine as warranted. Encourage continued engagement in AA and sober support system. No acute safety concerns the time of this appt, she is agreeable to treatment plan and was provided an opportunity to ask questions. May self-administer medications or be administered own oral medications per [place] protocols. Provided informed consent with understanding of side effects, adverse effects, risks and benefits as well as alternative treatments as previously discussed and with the above recommended medications & other aspects of the treatment program. Agrees to return sooner if symptoms worsen or suicidal or homicidal ideations occur. 01/10/2024 Benzodiazepine dependence (ICD-10 - F13.20) 20 years, treatment goal includes reduction of alprazolam 04/08/2024 Insomnia due to mental disorder (ICD-10 - F51.05) History: 20 year Xanax use. Hx of extensive trauma starting in childhood. Failed mx antidepressants. with increase in side effects. Works at [employer], 2 grown [employer]. Previous SA by OD on pain pills. Currently, seeing therapist 2x a week at [facility]. In [employer] the past 8 years, has a sponsor. Last drink June 2015. Today's visit: Patient is a 49-year-old female who presents for a psychiatric follow-up over phone and is located in [place]. Previously seen on 03/20/2024 and during this appt was started on Trazodone for insomnia and continued on her other psychiatric medications. Previous PHQ-9 score of 14, today is 7. Presents with improved mood on Prozac 20mg daily, however still struggling with anxiety. Trazodone 50mg effective for sleep, reports some drowsiness in the morning which is improved when taking earlier in the night. Will increase Prozac to 40mg daily to target anxiety and depressive sx further. Continue Xanax prn for breakthrough anxiety and panic. Recommend follow up in 6-8 weeks to assess response to Prozac dose increase. Encourage continued engagement in AA and sober support system. No acute safety concerns the time of this appt, she is agreeable to treatment plan and was provided an opportunity to ask questions. May self-administer medications or be administered own oral medications per [place] protocols. Provided informed consent with understanding of side effects, adverse effects, risks and benefits as well as alternative treatments as previously discussed and with the above recommended medications & other aspects of the treatment program. Agrees to return sooner if symptoms worsen or suicidal or homicidal ideations occur. 06/06/2024 Insomnia due to mental disorder (ICD-10 - F51.05) History: 20 year Xanax use. Hx of extensive trauma starting in childhood. Failed mx antidepressants. with increase in side effects. Works at [employer], 2 grown children. Previous SA by OD on pain pills. Currently, seeing therapist 2x a week at [facility]. In [employer] the past 8 years, has a sponsor. Last drink June 2015. Today's visit: Patient is a 49-year-old female who presents for a psychiatric follow-up over phone and is located in [place]. Previously seen on 04/08/24 and during this appt was increased on fluoxetine to 40 mg, and continued on her other psychiatric medications as prescribed. Previous PHQ score of 7, today is 11. Pt called in with s/e of increased fluoxetine and decreased back to 20 mg shortly after previous appt. Pt reports interpersonal stressors that are impacting her mood and anxiety, but given everything, she feels she is handling it well. She does not wish to make any adjustments. Encourage pt to follow up with PCP regarding hand tremors. Discussed Wellbutrin can sometimes cause this, but reports she's been taking for many years. She denies any other side effects from medicine. Encourage continued engagement in AA and sober support system. No acute safety concerns the time of this appt, she is agreeable to treatment plan and was provided an opportunity to ask questions. May self-administer medications or be administered own oral medications per [place] protocols. Provided informed consent with understanding of side effects, adverse effects, risks and benefits as well as alternative treatments as previously discussed and with the above recommended medications & other aspects of the treatment program. Agrees to return sooner if symptoms worsen or suicidal or homicidal ideations occur. 07/29/2024 Insomnia due to mental disorder (ICD-10 - F51.05) History: 20 year Xanax use. Hx of extensive trauma starting in childhood. Failed mx antidepressants. with increase in side effects. Works at [employer], [employer]. Previous SA by OD on pain pills. Currently, seeing therapist 2x a week at [facility]. In [employer] the past 8 years, has a sponsor. Last drink June 2015. Today's visit: Patient is a 49-year-old female who presents for a psychiatric follow-up over phone and is located in [place]. Previously seen on 06/06/24 and during this appt was continued on fluoxetine to 40 mg, trazodone 50 mg as needed, Wellbutrin SR 150 mg BID, alprazolam 1 mg BID as needed, Buspar 10 mg BID. Previous PHQ score of 11, today is 10. Pt self-discontiued fluoxetine and trazodone, and since her tremors have improved/disappeared. Denies any worsening depression/anxiety with discontinuation and sleeping through the night. Does not want any further adjustments at this time. Encourage continued engagement in AA and sober support system. No acute safety concerns the time of this appt, she is agreeable to treatment plan and was provided an opportunity to ask questions. May self-administer medications or be administered own oral medications per [place] protocols. Provided informed consent with understanding of side effects, adverse effects, risks and benefits as well as alternative treatments as previously discussed and with the above recommended medications & other aspects of the treatment program. Agrees to return sooner if symptoms worsen or suicidal or homicidal ideations occur. 10/13/2024 Insomnia due to mental disorder (ICD-10 - F51.05) 12/06/2023 Other Discussed treatment planDiscussed sleep hygiene and caffeine intakeReturn to clinic 4 weeksObtain lab work at next visit Encouraged counselingDiscussed treatment plan; patient is agreeable and accepting of treatment plan. Patient denies further questions or concerns at this time. The Patient/Guardian asked appropriate questions, appeared to understand the answers, and decided to accept the treatment and continue being followed.The Patient/Guardian is aware of the need to contact the office or return for an earlier appointment if any problems or concerns arise. May also contact the 24-hour crisis hotline (R), refer to the closest emergency room or call 911 if new symptoms arise of existing symptoms worsen; the Patient/Guardian is aware that this would apply to symptoms such as: suicidal ideation, homicidal ideation, high risk behaviors, manic symptoms, psychotic symptoms, physical symptoms, or any other symptoms that may be dangerous to self or others. Patient made aware that this provider will be leaving [facility] as of 12/19/2023 and she will be transitioned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
--- OUTSIDE RECORDS SUMMARY | 2024-12-05 16:58 | XMS_ITS | Clinical Summary ---
Author Organization [facility] Physician Office Building [address] [place] [phone] Care Team Providers Care Car Starter Name Role Phone Brian Delgado MD Primary Care Provider Allergies Active Allergy Reactions Criticality Noted Date Comments Penicillins Povidone-Iodine Rash Medium Shellfish Containing Products Other (See comments) Reaction: ERYTHEMA, Medications buPROPion SR (WELLBUTRIN SR) 150 mg 12 hr tablet Active estradioL (ESTRACE) 0.5 mg tablet Take by mouth Active methylPREDNISol one (Medrol, Gurwinder,) 4 mg Dosepack follow package directions 21 tablet 0 Active ALPRAZolam (XANAX) 1 mg tablet 0 0 Active gabapentin (NEURONTIN) 300 mg capsule TAKE 1 CAPSULE BY MOUTH EVERY DAY AT NIGHT 30 capsule 1 Active Active Problems Problem Noted Date Diagnosed Date Depression 05/06/2012 Degeneration of lumbar or lumbosacral interverte bral disc 05/16/2011 Encounters Date Type Department Care Team Description 12/04/[address] [phone] Devora Austin from Last 3 Months Surgical History Surgery Date Site/Laterality Comments HERNIA REPAIR HYSTERECTOMY Medical History Medical History Date Comments Osteoarthritis Depression Family History Medical History Relation Name Comments Arthritis Father Arthritis Mother Relation Name Status Comments Father Mother Social History Tobacco Use Types Packs/Day Years [...] on file Legal Sex Female 10:28 AM RECYCLING OR RUBBISH COLLECTOR Gender Identity Not on file Sexual Orientation Not on file Obstetrics History Last Filed Vital Signs Vital Sign Reading Time Taken Comments Blood Pressure 110/60 12/08/2019 8:54 AM CDT Pulse 68 05/02/2012 3:19 PM RECYCLING OR RUBBISH COLLECTOR Temperature 36.5 C (97.7 F) 12/08/2019 8:54 AM CDT Respiratory Rate - - Oxygen Saturation - - Inhaled Oxygen Concentration - - Weight 63.5 kg (140 lb) 12/18/2019 8:53 AM CDT Height 167.6 cm (5' 6) 12/18/2019 8:53 AM CDT Body Mass Index 22.6 12/18/2019 8:53 AM CDT Plan of Treatment Not on file Insurance [facility] Address: [facility] [address] [place] [address] [facility] CHOICE PLUS [facility] H[facility]/PPO Address: [address] [address] [place] [address] [facility] CHOICE OOS Care Teams Car Starter Relationship Specialty Start Date End Date Brian Delgado MD [address] [facility] [address] [place] [address] PCP - General Internal Medicine 11/18/19
--- OUTSIDE RECORDS SUMMARY | 2024-12-05 16:58 | XMS_ITS | Clinical Summary ---
Author Organization [facility] Address [address] [place] [address] Care Team Providers Care Pearler Name Role Phone Brian Delgado MD Primary Care Provider [phone] Brian Delgado MD Unavailable [phone] Source Comments [facility],non-owned Affiliates and Associated Physician Practices is amultiple site organization consisting of ambulatory clinics and hospital sitesin [place], [place]. This disclosure is being madepursuant to the Care Everywhere program and may not contain all information available regarding this patient. Last updated 17.[facility] Allergies Active Allergy Reactions Criticality Noted Date Comments Amoxicillin Anaphylaxis High 05/06/2017 Povidone Iodine 05/15/2011 Penicillins Swelling 03/18/2018 Medications * Be aware that medications may not be up to date on this document. Alwaysverify current medications with the patient. buPROPion SR 12hr (WELLBUTRIN SR) 150 MG tablet Active ALPRAZolam (XANAX) 0.5 MG tablet Active Estradiol (ESTRACE PO) Active Active Problems Problem Noted Date Diagnosed Date Depression 05/06/2012 Degeneration of lumbar or lumbosacral interverte bral disc 05/16/2011 Family History Medical History Relation Name Comments Bipolar Disorder Father Asthma Mother Relation Name Status Comments Father Mother Social History Tobacco Use Types Packs/Day Years Used Date Smoking Tobacco: Never Smokeless Tobacco: Never Tobacco Cessation:Ready to Q uit: No; Counseling Given: Yes Alcohol Use Standard Drinks/Week Comments Yes 0 (1 standard drink = 0.6 oz pur e alcohol) 1 per week Comments No Sex and Gender Information Value Date Recorded Sex Assigned at Not on file 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 Gender Identity Not on file Sexual Orientation Not on file Last Filed Vital Signs Vital Sign Reading Time Taken Comments Blood Pressure 124/90 12/03/2019 2:51 PM CDT Pulse 99 12/03/2019 2:51 PM CDT Temperature 37.1 C (98.7 F) 12/03/2019 2:51 PM CDT Respiratory Rate 18 12/03/2019 2:51 PM CDT Oxygen Saturation 98% 12/03/2019 2:51 PM CDT Inhaled Oxygen Concentration - - Weight 63.5 kg (140 lb) 12/03/2019 2:51 PM CDT Height 167.6 cm (5' 6) 12/03/2019 2:51 PM CDT Body Mass Index 22.6 12/03/2019 2:51 PM CDT Plan of Treatment Health Maintenance Due Date Last Done Comments COLOGUARD (AGES 45-75) - COL ON CA SCREENING 1974 COLON MONITORING 1974 COLONOSCOPY - COLON CA SCREENING 1974 CT COLONOGRAPHY - COLON CA SCREENING 1974 Colorectal Cancer Screening 1974 FIT - COLON CA SCREENING 1974 FLEX SIG - COLON CA SCREENING 1974 LIPID TESTING 1974 MAMMOGRAM 1974 HIV SCREENING 1989 HEPATITIS C SCREENING 03/19/1992 DTAP/TDAP/TD VACCINES (1 - Tdap) 1993 HEPATITIS B VACCINE (1 of 3 - 19+ 3-dose series) 1993 PNEUMOCOCCAL VACCINE 50+ (1 of 1 - PCV) 2024 ZOSTER VACCINE (1 of 2) 2024 DEPRESSION SCREENING 03/26/2024 COVID-19 VACCINE (1 - 2023-2 5 season) 2024 INFLUENZA VACCINE (#1) 2024 HIB VACCINE Aged Out No longer eligi ble based on patient's age to complete this topic HPV VACCINE Aged Out No longer eligi ble based on patient's age to complete this topic MENINGOCOCCAL (Group B) VACC INE SHARED DECISION-MAKING Aged Out No longer eligibl e based on patient's age to complete this topic MENINGOCOCCAL GROUPS A/C/Y/W VACCINE Aged Out No longer eligible b ased on patient's age to complete this topic Insurance [facility] Care Teams Pearler Relationship Specialty Start Date End Date Brian Delgado MD [address] [place] [phone] PCP - General Internal Medicine 03/18/18 Brian Delgado MD [address] [place] [phone] Internal Medicine 03/18/18
[2024-12-05 17:31] VITALS: BP 151/87; PULSE 91; RESP 16; TEMP 36.7; O2SAT 98
[2024-12-05] MEDS: KETOROLAC 30 MG/ML VIAL (*BKC) IM (19:01)
--- OUTSIDE RECORDS SUMMARY | 2024-12-05 19:03 | XMS_ITS | Clinical Summary ---
Author Organization [facility] Address [address] [place] [address] Care Team Providers Care Rn Hospice Name Role Phone Brian Delgado MD Primary Care Provider [phone] Brian Delgado MD Unavailable Source Comments [facility],non-owned Affiliates and Associated Physician Practices is amultiple site organization consisting of ambulatory clinics and hospital sitesin [place], [place], [place] and [place]. This disclosure is being madepursuant to the Care Everywhere program and may not contain all information available regarding this patient. 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
--- OUTSIDE RECORDS SUMMARY | 2024-12-05 19:03 | XMS_ITS | Clinical Summary ---
Author Organization [facility] Physician Office Building [address] [place] [phone] Care Team Providers Care Construction Coordinator Name Role Phone Brian Delgado MD Primary [...] Type Department Care Team Description 12/04/[address] [phone] Devora uAstin from Last 3 Months Surgical History Surgery [...] on file Legal Sex Female 10:28 AM PERSHING MISSILE CREWMEMBER Gender Identity Not on file Sexual Orientation Not on file Obstetrics History Last Filed Vital Signs Vital Sign Reading Time Taken Comments Blood Pressure 110/60 12/08/2019 8:54 AM CDT Pulse 68 05/02/2012 3:19 PM PERSHING MISSILE CREWMEMBER Temperature 36.5 C (97.7 F) 12/08/2019 8:54 AM CDT Respiratory Rate - - Oxygen Saturation - - Inhaled Oxygen Concentration - - Weight 63.5 kg (140 lb) 12/18/2019 8:53 AM CDT Height 167.6 cm (5' 6) 12/18/2019 8:53 AM CDT Body Mass Index 22.6 12/18/2019 8:53 AM CDT Plan of Treatment Not on file Insurance [facility] CHOICE PLUS BLUE [facility] CHOICE OOS Care Teams Construction Coordinator Relationship Specialty Start Date End Date Brian Delgado MD [address] [facility] [address] [place] [address] PCP - General Internal Medicine 11/18/19
--- OUTSIDE RECORDS SUMMARY | 2024-12-05 19:03 | XMS_ITS | Encounter Summary ---
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
[2024-12-05] MEDS: TIZANIDINE HCL 2 MG TABLET PO (19:31)
--- NOTE | 2024-12-05 19:34 | ED_ITS ---
HPI - Back Pain/Injury General Chief Complaint: Back Pain/Injury Stated Complaint: neck pain, back pain-chronic problem Time Seen by Provider: 12/05/24 18:25 History of Present Illness HPI Narrative: Patient is a 49-year-old female who presents ER with back pain. Reports is chronic. Saw pain management yesterday. Their plan to do MRIs to evaluate further. No new numbness or weakness in the arms or legs. No saddle anesthesia or difficulty with urination/defecation. She has been taking jiau-kvs-qylqqhi Aleve/ibuprofen/Tylenol without improvement. She does not have any muscle relaxers or narcotic pain medication. No new trauma. The majority of her discomfort is in her shoulders and upper back. Worse with movement. Related Data Home Medications ?Medication ?Instructions ?Recorded ?Confirmed ?Last Taken ?Type alprazolam 1 mg tablet mg 09/13/24 Unknown History bupropion HCl 150 mg tablet,12 hr mg PO 09/13/24 Unkn own History sustained-release buspirone 10 mg tablet mg 09/13/24 Unknown History estradiol 2 mg tablet mg 09/13/24 Unknown History Allergies Allergy/AdvReac Type Severity Reaction Status Date / Time Penicillins Allergy Unknown Unknown Verified 12/05/24 17:33 povidone Allergy Unknown Unknown Verified 12/05/24 17:33 soap Allergy Unknown Unknown Verified 12/05/24 17:33 iodine Allergy Unknown Verified 12/05/24 17:33 povidone-iodine (From Allergy Blister Verified 12/05/24 17:33 Betadine) Review of Systems Constitutional: Constitutional: Reports no additional constitutional complaints Cardiovascular: Cardiovascular: Reports no additional cardiovascular complaints Respiratory: Respiratory: Reports no additional respiratory complaints Musculoskeletal: Musculoskeletal: Reports no additional musculoskeletal complaints Neurologic: Reports system reviewed and no additional complaints, except as documented [facility] Past Medical History Medical History History of depression Surgical History Surgical History History of hysterectomy Family History Family History Father Family history of arthritis Family history of chronic obstructive pulmonary disease Mother Family history of arthritis Other Cerebrovascular accident Diabetes mellitus Family history of allergic disorder Hypertension Social History Social History Smoking status: Never smoker Alcohol intake: current Exam Narrative: GENERAL: Well-appearing, well-nourished, and in no acute distress. HEAD: Normocephalic, atraumatic. ENT: Mucous membranes moist. CHEST: Clear to auscultation. No respiratory distress. HEART: Regular rate and rhythm. Normal peripheral pulses. Back: No reproducible midline tenderness of the T/L-spine. There is discomfort over the trapezius and rhomboid musculature bilaterally. No palpable spasm. EXTREMITIES: Normal range of motion. No edema. SKIN: Warm, dry, no rash. NEURO: Alert and oriented x3. PSYCH: Normal mood and affect. Course Course Emergency Course: Patient received Toradol and tizanidine in the ER. Chart review shows that she received a prescription for tramadol today as well. She will be discharged without any additional interventions or imaging as this is a chronic issue Vital Signs Vital signs: Vital Signs Temperature 98.1 F 12/05/24 17:31 Pulse Rate 91 12/05/24 17:31 Respiratory Rate 16 12/05/24 17:31 Blood Pressure 151/87 H 12/05/24 17:31 Pulse Oximetry 98 12/05/24 17:31 Temperature 98.1 F 12/05/24 17:31 Pulse Rate 91 12/05/24 17:31 Respiratory Rate 16 12/05/24 17:31 Blood Pressure 151/87 H 12/05/24 17:31 Pulse Oximetry 98 12/05/24 17:31 Discharge Plan Discharge Clinical Impression: Chronic back pain Patient Disposition: Home Condition: Stable Instructions: Chronic Back Pain (DC) Additional Instructions: Please return to the emergency department if you develop severe pain that is not controlled by pain medications or if you are unable to walk because of pain or weakness. Return to the emergency department immediately if you develop fevers, loss of bowel or bladder control (dribbling of urine or having accidents you wouldn't normally have), inability to urinate, numbness of your genital or anal area, or weakness/numbness of your legs or arms as these could all be signs of a serious medical emergency. Patient Language: Surinamese Prescriptions: New cyclobenzaprine 10 mg tablet 10 mg PO TID PRN (Reason: muscle spasm) Qty: 20 0RF No Action bupropion HCl 150 mg tablet sustained-release 12 hr PO alprazolam 1 mg tablet buspirone 10 mg tablet estradiol 2 mg tablet uuwcosck-zaksujiev-VG 3.5-10,000-1 mg/mL-unit/mL-% drops,suspension 4 drp EACH EAR Q8H 5 Days Qty: 10 0RF Follow-up/Referrals: Delgado,Brian Forrester MD [Primary Care Provider] - 1 Week
[2024-12-05 19:52] VITALS: BP 144/75; PULSE 75; RESP 16; TEMP 36.9; O2SAT 99
== END 2024-12-05 19:53 | disposition home or self-care (01) ==
PROVIDERS: Emergency Provider Emergency Medicine; PCP Internal Medicine
DX: M54.9 Dorsalgia, unspecified (principal); G89.29 Other chronic pain
CPT/HCPCS: 96372; 99283; A9270; J1885